=== PATIENT | female | born 2000 | race Caucasian/White ===

== ENCOUNTER 2021-08-23 19:26 | Emergency (ER) | payer OTHER ==
[~2021-08-23] VITALS: Ht 154.9 cm; Wt 64.4 kg
[2021-08-24] MEDS ORDERED: UTIX PO (00:10)
== END 2021-08-24 00:16 ==
LOC: ER 19:26
DX: N39.0 Urinary tract infection, site not specified (principal); B95.7 Other staphylococcus as the cause of diseases classified elsewhere; R31.9 Hematuria, unspecified